=== PATIENT | male | born 1975 | race Caucasian/White ===

== ENCOUNTER 2019-03-25 13:46 | Inpatient (IN) ==
[2019-03-25] MEDS ORDERED: ADENOSINE 6 MG/2 ML VIAL IV STA (14:11)
[2019-03-25] MEDS ORDERED: DILTIAZEM 50 MG/10 ML VIAL IV STA ×3 (14:18→16:29)
[2019-03-25 14:28] LABS: Basophils # 0.1 10*3/uL (0.0-0.2); Basophils % 0.9 % (0.0-0.8); Eosinophils # 0.1 10*3/uL (0.0-0.87); Eosinophils % 1.4 % (0.00-10.9); Hematocrit 47.6 VOL% (42.0-52.0); Hemoglobin 16.9 GM/DL (14.0-18.0); Immature Granulocytes % 0.7 %; Immature Granulocytes Absolute 0.06 #; Lymphocytes % 22.9 % (21.2-54.2); Mean Corpuscular HGB Conc 35.5 GM/DL (32-36); Mean Corpuscular Volume 90.8 FL (87-102); Mean Platelet Volume 9.8 FL (9.6-12.0); Monocytes % 5.4 % (1.7-12.7); Neutrophils % 68.7 % (38.7-73.9); Platelet Count 264 T/CUMM (130-400); Red Blood Count 5.24 MC/CUMM (3.8-5.5); Red Cell Distribution Width 12.4 % (9.3-17.3); White Blood Count 8.8 T/CUMM (4-12)
[2019-03-25 14:40] LABS: INR 0.9; Partial Thromboplastin Time 25.2 SECS (0-40)
[2019-03-25 14:55] LABS: Albumin 4.4 G/DL (3.4-5.0); Calcium 8.9 MG/DL (8.5-10.1); Osmolality,Calculated 284.1 MOS/KG (273-304); Thyroid Stimulating Hormone 1.38 uIU/ml (0.358-3.74); Total Protein 7.8 G/DL (6.4-8.3)
[2019-03-25] MEDS: dilTIAZem Drip 125 MG/125 ML PREMIX IV SCH ×2 (14:55→19:33)
[2019-03-25 15:22] LABS: Barbiturates Screen,Urine Negative (Negative); Benzodiazepines Screen,Urine Negative (Negative); Cannabinoid Screen,Urine Negative (Negative); Opiate Screen,Urine Negative (Negative); Phencyclidine Screen,Urine Negative (Negative)
[2019-03-25] MEDS ORDERED: ACETAMINOPHEN 325 MG TABLET PO PRN (16:16)
[2019-03-25 16:57] LABS: Apearance,Urine CLEAR (Clear); Bilirubin,Urine Negative (Negative); Blood, Urine Negative (Negative); Glucose,Urine (UA) Negative (Negative); Granular Casts,Urine 10 /LPF (0-1); Hyaline Casts,Urine 4 /LPF (0-3); Ketones,Urine 80 mg/dL (Negative); Mucus,Urine Moderate /LPF (Occasional); Nitrite,Urine Negative (Negative); Protein,Urine 30 MG/DL; Squamous Epithelial Cell,Urine Occasional /HPF (0-10); Urine Color Yellow (Yellow); Urine Specific Gravity 1.025 (1.001-1.035); Urine Urobilinogen < 2.0 EU/DL (0.2-1.0)
[2019-03-25] MEDS: METOPROLOL TARTRATE 25 MG TABLET PO SCH (21:36)
[2019-03-26 03:43] LABS: Basophils # 0.1 10*3/uL (0.0-0.2); Basophils % 0.8 % (0.0-0.8); Eosinophils # 0.2 10*3/uL (0.0-0.87); Eosinophils % 2.4 % (0.00-10.9); Hematocrit 44.1 VOL% (42.0-52.0); Immature Granulocytes % 0.5 %; Immature Granulocytes Absolute 0.04 #; Lymphocytes # 2.6 10*3/uL (1.4-4.0); Mean Corpuscular Volume 93.6 FL (87-102); Mean Platelet Volume 9.8 FL (9.6-12.0); Monocytes % 8.9 % (1.7-12.7); Neutrophils % 57.4 % (38.7-73.9); Platelet Count 230 T/CUMM (130-400); Red Blood Count 4.71 MC/CUMM (3.8-5.5); Red Cell Distribution Width 12.5 % (9.3-17.3); White Blood Count 8.7 T/CUMM (4-12)
[2019-03-26 04:02] LABS: Calcium 8.3 MG/DL (8.5-10.1); Osmolality,Calculated 279.4 MOS/KG (273-304); Risk Ratio 3.02
[2019-03-26] MEDS: dilTIAZem Drip 125 MG/125 ML PREMIX IV SCH ×2 (04:05→13:31)
[2019-03-26] MEDS ORDERED: POTASSIUM CHLORIDE 20 MEQ TABLET PO PRN (04:35)
[2019-03-26] MEDS: METOPROLOL TARTRATE 25 MG TABLET PO SCH (08:18)
[2019-03-26] MEDS ORDERED: PANTOPRAZOLE 40 MG TABLET PO SCH (09:00)
[2019-03-26] MEDS ORDERED: OMEGA 3 ACID ETHYL ESTERS 1 GM CAPSULE PO SCH (09:00)
[2019-03-26 11:39] VITALS: BP 111/59
== END 2019-03-26 16:20 | disposition home or self-care (01) | DRG 310 ==
LOC: N.ED 13:46 → N.EDINP 13:46 → OBSVTOIN 15:55 → N.TELES 19:28
PROVIDERS: ADMIT Internal Medicine; ATTEND Internal Medicine

== ENCOUNTER 2021-02-08 19:27 | Observation (INO) ==
[2021-02-08] MEDS ORDERED: SODIUM CHLORIDE 0.9% 500 ML IV STA (19:51)
[2021-02-08 20:22] LABS: Basophils # 0.1 10*3/uL (0.0-0.2); Basophils % 0.9 % (0.0-0.8); Eosinophils # 0.3 10*3/uL (0.0-0.87); Eosinophils % 3.2 % (0.00-10.9); Hematocrit 49.4 VOL% (42.0-52.0); Hemoglobin 17.3 GM/DL (14.0-18.0); Immature Granulocytes % 0.5 %; Immature Granulocytes Absolute 0.04 #; Lymphocytes # 2.2 10*3/uL (1.4-4.0); Lymphocytes % 27.1 % (21.2-54.2); Mean Corpuscular Volume 90.1 FL (87-102); Mean Platelet Volume 9.6 FL (9.6-12.0); Monocytes % 7.1 % (1.7-12.7); Neutrophils % 61.2 % (38.7-73.9); Platelet Count 234 T/CUMM (130-400); Red Blood Count 5.48 MC/CUMM (3.8-5.5); Red Cell Distribution Width 12.8 % (9.3-17.3)
[2021-02-08 20:50] LABS: Albumin 4.3 G/DL (3.4-5.0); Bilirubin,Total 1.3 MG/DL (0.2-1.0); Calcium 8.8 MG/DL (8.5-10.1); Osmolality,Calculated 277.5 MOS/KG (273-304); Potassium 3.7 MMOL/L (3.5-5.1); Total Protein 7.7 G/DL (6.4-8.2)
[2021-02-08 21:18] LABS: Bilirubin,Urine Negative (Negative); Blood, Urine Negative (Negative); Glucose,Urine (UA) Negative (Negative); Ketones,Urine Negative (Negative); Mucus,Urine Occasional /LPF (Occasional); Nitrite,Urine Negative (Negative); Protein,Urine Negative; RBC,Urine <1 /HPF (0-4); Urine Appearance CLEAR (Clear); Urine Color Yellow (Yellow); Urine Specific Gravity 1.009 (1.001-1.035); Urine Urobilinogen < 2.0 EU/DL (0.2-1.0)
[2021-02-08 21:33] LABS: Barbiturates Screen,Urine Negative (Negative); Benzodiazepines Screen,Urine Negative (Negative); Cannabinoid Screen,Urine Negative (Negative); Opiate Screen,Urine Negative (Negative); Phencyclidine Screen,Urine Negative (Negative)
[2021-02-08] MEDS ORDERED: ACETAMINOPHEN 325 MG TABLET PO PRN (21:45)
[2021-02-08] MEDS ORDERED: ONDANSETRON 4 MG/2 ML VIAL IV PRN (21:45)
[2021-02-08] MEDS ORDERED: DEXTROSE 50% 25 GM/50 ML VIAL IV PRN (21:45)
[2021-02-08] MEDS ORDERED: GLUCAGON 1 MG VIAL IM PRN (21:45)
[2021-02-08] MEDS ORDERED: METOPROLOL SUCCINATE XL 25 MG TABLET PO ONE (22:31)
[2021-02-08] MEDS ORDERED: METOPROLOL SUCCINATE XL 50 MG TABLET PO ONE (22:54)
[2021-02-09] MEDS: SODIUM CHLORIDE 0.9% 1,000 ML IV SCH ×2 (01:39→14:28)
[2021-02-09] MEDS ORDERED: ENOXAPARIN 40 MG/0.4 ML SYRINGE SUBCUT SCH (07:00)
[2021-02-09] MEDS ORDERED: PANTOPRAZOLE 40 MG TABLET PO SCH (09:00)
[2021-02-09 11:54] VITALS: BP 124/69
[2021-02-09] MEDS ORDERED: METOPROLOL SUCCINATE XL 25 MG TABLET PO SCH (21:00)
== END 2021-02-09 15:30 | disposition home or self-care (01) ==
LOC: EDUNIT# → EDBD → N.ED 19:27 → N.EDINP 19:27 → N.TELES 23:45
PROVIDERS: ADMIT Internal Medicine; ATTEND Internal Medicine